=== PATIENT | female | born 1940 | race Caucasian/White ===

== ENCOUNTER → 2017-05-06 | Outpatient (CLI) | payer MEDICARE ==
[2017-05-06 08:49] LABS: ABSOLUTE BASOPHILS # (AUTO) 0.1 10^3/uL (0.0-0.2); ABSOLUTE EOSINOPHILS # (AUTO) 0.3 10^3/uL (0.0-0.6); ABSOLUTE LYMPHOCYTES (AUTO) 1.8 10^3/uL (0.5-4.7); ABSOLUTE MONOCYTES (AUTO) 0.5 10^3/uL (0.1-1.4); ABSOLUTE NEUT (AUTO) 4.7 10^3/uL (1.7-8.2); BASOPHILS % (AUTO) 0.9 % (0-2); HEMATOCRIT 39.3 % (36.0-47.0); HEMOGLOBIN 13.7 g/dL (12.0-15.5); HGB HCT DIFFERENCE 1.8; LYMPHOCYTES % (AUTO) 23.9 % (13-45); MEAN CORPUSCULAR HEMOGLOBIN 31.3 pg (27.0-33.4); MEAN CORPUSCULAR HGB CONC 34.7 g/dL (32.0-36.0); MEAN CORPUSCULAR VOLUME 90 fl (80-97); MONOCYTES % (AUTO) 7.1 % (3-13); RED BLOOD COUNT 4.37 10^6/uL (3.72-5.28); RED CELL DISTRIBUTION WIDTH 12.9 % (11.5-14.0); SEGMENTED NEUTROPHILS % (AUTO) 64.1 % (42-78); WHITE BLOOD COUNT 7.4 10^3/uL (4.0-10.5)
[2017-05-06 09:03] LABS: APPEARANCE,URINE CLEAR; BILIRUBIN,URINE NEGATIVE (NEGATIVE); GLUCOSE, URINE NEGATIVE (NEGATIVE); KETONES,URINE NEGATIVE (NEGATIVE); LEUKOCYTE ESTERASE,URINE TRACE (NEGATIVE); NITRITE,URINE NEGATIVE (NEGATIVE); PROTEIN,URINE NEGATIVE (NEGATIVE); URINE SPECIFIC GRAVITY 1.014; UROBILINOGEN,URINE NEGATIVE mg/dL (<2.0)
[2017-05-06 09:10] LABS: ALANINE AMINOTRANSFERASE 36 U/L (9-52); ALBUMIN 4.3 g/dL (3.5-5.0); ALKALINE PHOSPHATASE 90 U/L (38-126); ANION GAP 14 (5-19); ASPARTATE AMINO TRANSFERASE 27 U/L (14-36); BILIRUBIN,DIRECT 0.4 mg/dL (0.0-0.4); BILIRUBIN,TOTAL 0.4 mg/dL (0.2-1.3); BLOOD UREA NITROGEN 24 mg/dL (7-20); CALCIUM 9.8 mg/dL (8.4-10.2); CARBON DIOXIDE 24 mmol/L (22-30); CHLORIDE 102 mmol/L (98-107); CREATININE RESULT 1.33 mg/dL (0.52-1.25); GLUCOSE 100 mg/dL (75-110); PHOSPHORUS 3.7 mg/dL (2.5-4.5); SODIUM 140.3 mmol/L (137-145); TOTAL PROTEIN 7.2 g/dL (6.3-8.2)
[2017-05-06 09:15] LABS: ANION GAP 14 (5-19); BLOOD UREA NITROGEN 24 mg/dL (7-20); CALCIUM 9.8 mg/dL (8.4-10.2); CARBON DIOXIDE 24 mmol/L (22-30); CHLORIDE 102 mmol/L (98-107); CREATININE RESULT 1.33 mg/dL (0.52-1.25); GLUCOSE 100 mg/dL (75-110); SODIUM 140.3 mmol/L (137-145)
[2017-05-06 09:29] LABS: CHOLESTEROL 213.21 mg/dL (0-200); Direct HDL 59 mg/dL (>40); TRIGLYCERIDES 152 mg/dL (<150); VLDL CHOLESTEROL 30.4 mg/dL (10-31)
[2017-05-06 09:40] LABS: DIRECT LDL 110 mg/dL (<100)
[2017-05-09 11:40] LABS: CREATININE URINE 57.3 mg/dL (Not Estab.); MICROALBUMIN URINE 3.4 ug/mL (Not Estab.)
== END ==
LOC: OD 07:56
PROVIDERS: ATTEND Internal Medicine Nephrology
DX: E78.2 Mixed hyperlipidemia (principal); I10 Essential (primary) hypertension; E03.9 Hypothyroidism, unspecified; Z79.899 Other long term (current) drug therapy; N19 Unspecified kidney failure; R60.0 Localized edema; D64.9 Anemia, unspecified
CPT/HCPCS: 36415; 80048; 80053; 80061; 81001; 82043; 82306; 82570; 83036; 83970; 84100; 84443; 85025

== ENCOUNTER → 2017-08-07 | Outpatient (CLI) | payer MEDICARE ==
[2017-08-07 10:48] LABS: ANION GAP 13 (5-19); BLOOD UREA NITROGEN 56 mg/dL (7-20); CALCIUM 10.2 mg/dL (8.4-10.2); CARBON DIOXIDE 22 mmol/L (22-30); CHLORIDE 103 mmol/L (98-107); GLUCOSE 99 mg/dL (75-110); POTASSIUM 4.1 mmol/L (3.6-5.0); SODIUM 138.3 mmol/L (137-145)
== END ==
LOC: OD 08:59
PROVIDERS: ATTEND Internal Medicine Nephrology
DX: I12.9 Hypertensive chronic kidney disease with stage 1 through stage 4 chronic kidney disease, or unspecified chronic kidney disease (principal); N18.3 Chronic kidney disease, stage 3 (moderate); E55.9 Vitamin D deficiency, unspecified; E21.3 Hyperparathyroidism, unspecified
CPT/HCPCS: 36415; 80048; 82306; 83970

== ENCOUNTER 2018-01-14 12:05 | Day surgery (SDC) | payer MEDICARE ==
[2018-01-06 10:56] LABS: ABSOLUTE BASOPHILS # (AUTO) 0.1 10^3/uL (0.0-0.2); ABSOLUTE EOSINOPHILS # (AUTO) 0.2 10^3/uL (0.0-0.6); ABSOLUTE LYMPHOCYTES (AUTO) 2.1 10^3/uL (0.5-4.7); ABSOLUTE MONOCYTES (AUTO) 0.6 10^3/uL (0.1-1.4); ABSOLUTE NEUT (AUTO) 5.5 10^3/uL (1.7-8.2); BASOPHILS % (AUTO) 1.3 % (0-2); EOSINOPHILS % (AUTO) 2.8 % (0-6); HEMATOCRIT 40.2 % (36.0-47.0); HEMOGLOBIN 13.9 g/dL (12.0-15.5); LYMPHOCYTES % (AUTO) 24.3 % (13-45); MEAN CORPUSCULAR HEMOGLOBIN 31.7 pg (27.0-33.4); MEAN CORPUSCULAR HGB CONC 34.7 g/dL (32.0-36.0); MEAN CORPUSCULAR VOLUME 91 fl (80-97); PLATELET COUNT 230 10^3/uL (150-450); RED CELL DISTRIBUTION WIDTH 12.7 % (11.5-14.0); SEGMENTED NEUTROPHILS % (AUTO) 64.6 % (42-78); TOTAL CELLS COUNTED % (AUTO) 100 %; WHITE BLOOD COUNT 8.5 10^3/uL (4.0-10.5)
[2018-01-06 11:01] LABS: INTERNATIONAL RATION (INR) 0.88; PROTHROMBIN TIME 12.4 SEC (11.4-15.4)
[2018-01-06 11:02] LABS: PARTIAL THROMBOPLASTIN TIME 29.7 SEC (23.5-35.8)
[2018-01-06 11:05] LABS: APPEARANCE,URINE CLEAR; BILIRUBIN,URINE NEGATIVE (NEGATIVE); COLOR,URINE YELLOW; GLUCOSE, URINE NEGATIVE (NEGATIVE); KETONES,URINE NEGATIVE (NEGATIVE); LEUKOCYTE ESTERASE,URINE SMALL (NEGATIVE); NITRITE,URINE POSITIVE (NEGATIVE); PROTEIN,URINE NEGATIVE (NEGATIVE); URINE SPECIFIC GRAVITY 1.006; UROBILINOGEN,URINE NEGATIVE mg/dL (<2.0)
--- NOTE | 2018-01-06 12:41 | RADIOLOGY REPORT (SQ) ---
EXAM DESCRIPTION: CHEST PA/LATERAL COMPLETED DATE/TIME: 01/06/2018 11:26 am REASON FOR STUDY: PRE-OP COMPARISON: 03/08/2014. EXAM PARAMETERS: NUMBER OF VIEWS: two views TECHNIQUE: Digital Frontal and Lateral radiographic views of the chest acquired. RADIATION DOSE: NA LIMITATIONS: none FINDINGS: LUNGS AND PLEURA: No opacities, masses or pneumothorax. No pleural effusion. MEDIASTINUM AND HILAR STRUCTURES: No masses or contour abnormalities. HEART AND VASCULAR STRUCTURES: Heart normal size. No evidence for failure. BONES: No acute findings. HARDWARE: None in the chest. OTHER: No other significant finding. IMPRESSION: NO SIGNIFICANT RADIOGRAPHIC FINDING IN THE CHEST. TECHNICAL DOCUMENTATION: JOB ID: [id number] [employer]- All Rights Reserved Reading location - IP/workstation name: [email or web address]
--- NOTE | 2018-01-06 17:58 | EKG REPORT ---
SEVERITY:- BORDERLINE ECG - SINUS RHYTHM LOW VOLTAGE THROUGHOUT : Confirmed by: Litzy Salinas 06-Jan-2018 17:58:05
[~2018-01-14 12:05] MED LIST: CEFAZOLIN 1 GM/D5W RTU 1 GM/50 ML RTUPB IV PRN; CLINDAMYCIN 600 MG/D5W RTU 600 MG/50 ML RTUPB IV ONE; LIDOCAINE 0.5% INJ-PF (5 MG/ML) 50 ML SDV SUBCUT PRN; NORMAL SALINE 1000 ML (RENAL PATIENTS) IV PRN
[2018-01-14] MEDS ORDERED: ALBUTEROL SULFATE 0.083% NEB 2.5 MG/3 ML AMPUL NEB ONE (13:14)
--- NOTE | 2018-01-14 13:28 | RADIOLOGY REPORT (SQ) ---
EXAM DESCRIPTION: CHEST SINGLE VIEW COMPLETED DATE/TIME: 01/14/2018 12:59 pm REASON FOR STUDY: PREOP COMPARISON: 01/06/2018 EXAM PARAMETERS: NUMBER OF VIEWS: One view. TECHNIQUE: Single frontal radiographic view of the chest acquired. RADIATION DOSE: NA LIMITATIONS: None. FINDINGS: LUNGS AND PLEURA: No opacities, masses or pneumothorax. No pleural effusion. MEDIASTINUM AND HILAR STRUCTURES: No masses. Contour normal. HEART AND VASCULAR STRUCTURES: Heart normal in size. Normal vasculature. BONES: No acute findings. HARDWARE: None in the chest. OTHER: No other significant finding. IMPRESSION: NO ACUTE RADIOGRAPHIC FINDING IN THE CHEST. TECHNICAL DOCUMENTATION: JOB ID: [id number] [employer]- All Rights Reserved Reading location - IP/workstation name: [email or web address]
[2018-01-14] MEDS ORDERED: LIDOCAINE 1% INJ-PF (10 MG/ML) 30 ML SDV ONE (14:52)
[2018-01-14] MEDS ORDERED: TRIAMCINOLONE ACETONIDE INJ 40 MG/1 ML VIAL ONE ×2 (14:53)
[2018-01-14] MEDS ORDERED: BUPIVACAINE HCL 0.25% /EPINEPHRINE INJ/PF 30 ML SDV ONE (14:53)
[2018-01-14] MEDS ORDERED: FENTANYL CITRATE INJ/PF 100 MCG/2 ML AMPUL ONE (15:08)
[2018-01-14] MEDS ORDERED: PROPOFOL INJ 200 MG/20 ML VIAL IV ONE (15:09)
[2018-01-14] MEDS ORDERED: MIDAZOLAM 2 MG/2 ML INJ ONE ×2 (15:09)
[2018-01-14] MEDS ORDERED: MORPHINE SULFATE 10 MG/ML INJ IV PRN (15:48)
[2018-01-14] MEDS ORDERED: MEPERIDINE HCL/PF INJ 25 MG/1 ML DISP.SYRIN IV PRN (15:48)
[2018-01-14] MEDS ORDERED: PROMETHAZINE HCL INJ 25 MG/1 ML VIAL IV PRN ×2 (15:48)
[2018-01-14] MEDS ORDERED: OXYCODONE-ACETAMINOPHEN 5-325 MG TABLET PO PRN ×2 (15:48)
[2018-01-14] MEDS ORDERED: FENTANYL CITRATE INJ/PF 100 MCG/2 ML AMPUL IV PRN ×3 (15:48)
[2018-01-14] MEDS ORDERED: DIPHENHYDRAMINE HCL 50 MG/ML VIAL IV PRN (15:48)
[2018-01-14] MEDS ORDERED: CEFAZOLIN INJ 1 GM VIAL ONE (16:24)
[2018-01-14] MEDS ORDERED: OXYCODONE HCL IR 5 MG TABLET PO PRN (16:28)
[2018-01-14] MEDS ORDERED: CLINDAMYCIN PHOSPHATE INJ 300 MG/2 ML SDV ONE (16:32)
[2018-01-14] MEDS ORDERED: CLINDAMYCIN 300 MG/D5W RTU 300 MG/50 ML RTUPB IV ONE (17:00)
[2018-01-14 18:08] VITALS: BP 127/57
--- NOTE | 2018-01-14 20:15 | OPERATIVE REPORT E ---
Operative Report NAME: ELIER JOSE : 1940 AGE: 78Y DATE OF SURGERY: 01/14/2018 ROOM: PREOPERATIVE DIAGNOSIS: Lumbar spinal stenosis L4-5 with mild spondylolisthesis and neurogenic claudication. POSTOPERATIVE DIAGNOSIS: Lumbar spinal stenosis L4-5 with mild spondylolisthesis and neurogenic claudication. OPERATIVE PROCEDURE: Minimally invasive lumbar decompression L4-5 under fluoroscopic guidance using bilateral approach. SURGEON: JAUN CARDENAS M.D. ANESTHESIA: MAC. SURGICAL ASSISTANTS: MITZY BARROS M.D. INDICATIONS: Neurogenic claudication associated with spinal stenosis. BLOOD LOSS: 5 mL. COMPLICATIONS: None. SPECIMEN REMOVED: Lamina and ligamentum flavum at the L4-5 level bilaterally. PROCEDURE NOTE: After obtaining informed consent and advising the patient of the risks and benefits, including serious neurological bleeding, infection, paralysis, allergic reaction, failure to obtain pain relief and , she was taken to the operating room and placed comfortably in the prone position. MAC anesthesia was administered. She was prepped with appropriate drying time followed by draping. Using fluoroscopy, the lumbar spine was evaluated. Suitable entrance site for the L4-5 epidural needle placement was identified. This was anesthetized with 1% lidocaine with bicarb. The epidural needle was then inserted using a slight left paramedian technique entering near the midline location. Loss of resistance to saline was utilized. No heme or cerebrospinal fluid were noted. An epidurogram was performed demonstrating stenosis at the L4-5 level. Landmarks were further identified for placement of the MILD trocars using a bilateral approach with the entrance site above the right and left S1 pedicles. The skin above those regions was anesthetized with 1% lidocaine and a spinal needle was utilized to anesthetize the tissue tract to the L4-5 interspace bilaterally. Again, 1% lidocaine was utilized. Beginning on the left side, after a small incision was made in the skin, the MILD trocar was advanced along the anesthetized tract to the L4-5 interspace at the near left paramedian location. Views were taken in AP and oblique, demonstrating satisfactory location. The bone rongeur was then utilized followed by the tissue sculptor. Multiple passes were made and improvement in the *------* demonstrating resolution of the stenosis was noted. The procedure was then repeated on the right as described above. Again, improvement in contrast spread was noted demonstrating improvement in the stenosis. Upon completion of the case, an epidural steroid injection was performed at the same level using the existing needle. Total of 80 mg of triamcinolone were injected. All materials were removed. The region was cleansed. Sterile dressings were applied, and the patient was then taken to the PACU for further postoperative care and monitoring. DICTATING PHYSICIAN: JAUN CARDENAS M.D. [id number] PHY#: [id number] ID: [id number] JOB#: [id number] ACCT: [id number] cc:JAUN CARDENAS M.D. >
--- NOTE | 2018-01-14 20:43 | RADIOLOGY REPORT (SQ) ---
EXAM DESCRIPTION: NO CHG FLUORO; L SPINE 2 VIEWS COMPLETED DATE/TIME: 01/14/2018 8:11 pm REASON FOR STUDY: MILD; MINIMALLY INVASIVE LUMBAR DECOMPRESSION COMPARISON: None. FLUOROSCOPY TIME: 5.1 minutes 8 Images saved to PACS LIMITATIONS: None. PROCEDURE: Minimally invasive lumbar decompression FINDINGS: 8 images obtained with fluoro document the procedure. IMPRESSION: Minimally invasive lumbar decompression. Refer to operative note for further informatio n. COMMENT: PQRS 6045F: Fluoroscopy time of the procedure is documented in the report. TECHNICAL DOCUMENTATION: JOB ID: [id number] [employer]- All Rights Reserved Reading location - IP/workstation name: [email or web address]
--- NOTE | 2018-01-14 20:43 | RADIOLOGY REPORT (SQ) ---
EXAM DESCRIPTION: NO CHG FLUORO; L SPINE 2 VIEWS COMPLETED DATE/TIME: 01/14/2018 8:11 pm REASON FOR STUDY: MILD; MINIMALLY INVASIVE LUMBAR DECOMPRESSION COMPARISON: None. FLUOROSCOPY TIME: 5.1 minutes 8 Images saved to PACS LIMITATIONS: None. PROCEDURE: Minimally invasive lumbar decompression FINDINGS: 8 images obtained with fluoro document the procedure. IMPRESSION: Minimally invasive lumbar decompression. Refer to operative note for further informatio n. COMMENT: PQRS 6045F: Fluoroscopy time of the procedure is documented in the report. TECHNICAL DOCUMENTATION: JOB ID: [id number] [employer]- All Rights Reserved Reading location - IP/workstation name: [email or web address]
== END 2018-01-14 18:05 | disposition home or self-care (01) ==
LOC: OROUT 12:05
PROVIDERS: ATTEND Pain Medicine Interventional Pain Medicine
DX: M48.062 Spinal stenosis, lumbar region with neurogenic claudication (principal); Z00.6 Encounter for examination for normal comparison and control in clinical research program; M47.16 Other spondylosis with myelopathy, lumbar region; M47.897 Other spondylosis, lumbosacral region; M51.36 Other intervertebral disc degeneration, lumbar region; M54.17 Radiculopathy, lumbosacral region; M51.37 Other intervertebral disc degeneration, lumbosacral region; M54.5 Low back pain; M43.16 Spondylolisthesis, lumbar region; J44.9 Chronic obstructive pulmonary disease, unspecified; E03.9 Hypothyroidism, unspecified; I10 Essential (primary) hypertension; D64.9 Anemia, unspecified; M19.90 Unspecified osteoarthritis, unspecified site; G89.4 Chronic pain syndrome; Z79.01 Long term (current) use of anticoagulants; Z88.0 Allergy status to penicillin; Z88.5 Allergy status to narcotic agent; Z79.891 Long term (current) use of opiate analgesic; Z79.51 Long term (current) use of inhaled steroids
CPT/HCPCS: 93005; 36415 ×2; 84132; 85025; 85610; 85730; 81001; 71046; 71045; 72100; 93010; 0275T; Q9966; J2250; J3490 ×4; J2704; A9270; 630; J0690; J3010

== ENCOUNTER → 2018-02-07 | Outpatient (CLI) | payer MEDICARE ==
[2018-02-07 11:07] LABS: ANION GAP 14 (5-19); BLOOD UREA NITROGEN 41 mg/dL (7-20); CALCIUM 10.1 mg/dL (8.4-10.2); CARBON DIOXIDE 23 mmol/L (22-30); CHLORIDE 102 mmol/L (98-107); GLUCOSE 107 mg/dL (75-110); POTASSIUM 3.8 mmol/L (3.6-5.0); SODIUM 138.7 mmol/L (137-145)
[2018-02-07 11:09] LABS: APPEARANCE,URINE CLEAR; BILIRUBIN,URINE NEGATIVE (NEGATIVE); COLOR,URINE YELLOW; GLUCOSE, URINE NEGATIVE (NEGATIVE); KETONES,URINE NEGATIVE (NEGATIVE); LEUKOCYTE ESTERASE,URINE MODERATE (NEGATIVE); NITRITE,URINE NEGATIVE (NEGATIVE); PROTEIN,URINE NEGATIVE (NEGATIVE); UROBILINOGEN,URINE NEGATIVE mg/dL (<2.0)
[2018-02-08 11:38] LABS: CREATININE URINE 56.9 mg/dL (Not Estab.); MICROALBUMIN URINE 8.8 ug/mL (Not Estab.)
== END ==
LOC: OD 10:08
PROVIDERS: ATTEND Internal Medicine Nephrology
DX: N18.3 Chronic kidney disease, stage 3 (moderate) (principal); E55.9 Vitamin D deficiency, unspecified; N25.81 Secondary hyperparathyroidism of renal origin
CPT/HCPCS: 36415; 80048; 81001; 82043; 82306; 82570; 83970

== ENCOUNTER → 2018-03-28 | Outpatient (CLI) | payer MEDICARE ==
[2018-03-28 10:49] LABS: ANION GAP 14 (5-19); BLOOD UREA NITROGEN 45 mg/dL (7-20); CALCIUM 10.1 mg/dL (8.4-10.2); CARBON DIOXIDE 23 mmol/L (22-30); CHLORIDE 101 mmol/L (98-107); GLUCOSE 94 mg/dL (75-110); SODIUM 137.9 mmol/L (137-145)
== END ==
LOC: OD 09:56
PROVIDERS: ATTEND Internal Medicine Nephrology
DX: N18.3 Chronic kidney disease, stage 3 (moderate) (principal)
CPT/HCPCS: 36415; 80048

== ENCOUNTER → 2018-05-09 | Outpatient (CLI) | payer MEDICARE ==
[2018-05-09 10:49] LABS: ANION GAP 12 (5-19); BLOOD UREA NITROGEN 37 mg/dL (7-20); CALCIUM 9.7 mg/dL (8.4-10.2); CARBON DIOXIDE 24 mmol/L (22-30); CHLORIDE 105 mmol/L (98-107); CHOLESTEROL 227.45 mg/dL (0-200); GLUCOSE 90 mg/dL (75-110); POTASSIUM 3.9 mmol/L (3.6-5.0); SODIUM 140.9 mmol/L (137-145); TRIGLYCERIDES 118 mg/dL (<150)
[2018-05-09 11:00] LABS: DIRECT LDL 137 mg/dL (<100)
== END ==
LOC: OD 09:15
PROVIDERS: ATTEND Family Medicine
DX: E78.2 Mixed hyperlipidemia (principal); I10 Essential (primary) hypertension; E03.9 Hypothyroidism, unspecified; Z79.899 Other long term (current) drug therapy
CPT/HCPCS: 36415; 80048; 80061; 83036; 84443

== ENCOUNTER → 2018-06-26 | Outpatient (CLI) | payer MEDICARE ==
[2018-06-26 10:51] LABS: ANION GAP 10 (5-19); BLOOD UREA NITROGEN 42 mg/dL (7-20); CALCIUM 10.1 mg/dL (8.4-10.2); CARBON DIOXIDE 24 mmol/L (22-30); CHLORIDE 105 mmol/L (98-107); GLUCOSE 102 mg/dL (75-110); POTASSIUM 3.8 mmol/L (3.6-5.0); SODIUM 139.4 mmol/L (137-145)
== END ==
LOC: OD 09:27
PROVIDERS: ATTEND Internal Medicine Nephrology
DX: N18.3 Chronic kidney disease, stage 3 (moderate) (principal)
CPT/HCPCS: 36415; 80048

== ENCOUNTER → 2018-11-13 | Outpatient (CLI) | payer MEDICARE ==
[2018-11-13 09:49] LABS: ABSOLUTE BASOPHILS # (AUTO) 0.1 10^3/uL (0.0-0.2); ABSOLUTE EOSINOPHILS # (AUTO) 0.4 10^3/uL (0.0-0.6); ABSOLUTE LYMPHOCYTES (AUTO) 2.1 10^3/uL (0.5-4.7); ABSOLUTE MONOCYTES (AUTO) 0.5 10^3/uL (0.1-1.4); ABSOLUTE NEUT (AUTO) 6.1 10^3/uL (1.7-8.2); EOSINOPHILS % (AUTO) 3.9 % (0-6); HEMATOCRIT 37.8 % (36.0-47.0); HEMOGLOBIN 13.3 g/dL (12.0-15.5); LYMPHOCYTES % (AUTO) 23.4 % (13-45); MEAN CORPUSCULAR HEMOGLOBIN 31.6 pg (27.0-33.4); MEAN CORPUSCULAR HGB CONC 35.2 g/dL (32.0-36.0); MEAN CORPUSCULAR VOLUME 90 fl (80-97); MONOCYTES % (AUTO) 5.6 % (3-13); PLATELET COUNT 242 10^3/uL (150-450); RED BLOOD COUNT 4.21 10^6/uL (3.72-5.28); SEGMENTED NEUTROPHILS % (AUTO) 66.1 % (42-78); TOTAL CELLS COUNTED % (AUTO) 100 %; WHITE BLOOD COUNT 9.2 10^3/uL (4.0-10.5)
[2018-11-13 10:03] LABS: ALBUMIN 4.2 g/dL (3.5-5.0); ANION GAP 10 (5-19); BLOOD UREA NITROGEN 44 mg/dL (7-20); CALCIUM 10.3 mg/dL (8.4-10.2); CARBON DIOXIDE 27 mmol/L (22-30); CHLORIDE 102 mmol/L (98-107); GLUCOSE 102 mg/dL (75-110); PHOSPHORUS 3.7 mg/dL (2.5-4.5); POTASSIUM 3.8 mmol/L (3.6-5.0); SODIUM 139.4 mmol/L (137-145)
[2018-11-13 10:09] LABS: APPEARANCE,URINE SLIGHTLY-CLOUDY; BILIRUBIN,URINE NEGATIVE (NEGATIVE); COLOR,URINE YELLOW; GLUCOSE, URINE NEGATIVE (NEGATIVE); KETONES,URINE NEGATIVE (NEGATIVE); LEUKOCYTE ESTERASE,URINE LARGE (NEGATIVE); NITRITE,URINE POSITIVE (NEGATIVE); PROTEIN,URINE NEGATIVE (NEGATIVE); UROBILINOGEN,URINE NEGATIVE mg/dL (<2.0)
[2018-11-14 12:38] LABS: CREATININE URINE 44.8 mg/dL (Not Estab.); MICROALBUMIN URINE 15.2 ug/mL (Not Estab.)
== END ==
LOC: OD 09:07
PROVIDERS: ATTEND Internal Medicine Nephrology
DX: I12.9 Hypertensive chronic kidney disease with stage 1 through stage 4 chronic kidney disease, or unspecified chronic kidney disease (principal); N18.3 Chronic kidney disease, stage 3 (moderate); N39.0 Urinary tract infection, site not specified
CPT/HCPCS: 36415; 80069; 81001; 82043; 82306; 82570; 83970; 85025; 87086; 87088; 87186

== ENCOUNTER → 2019-03-19 | Outpatient (CLI) | payer MEDICARE ==
[2019-03-19 09:56] LABS: ANION GAP 11 (5-19); BLOOD UREA NITROGEN 35 mg/dL (7-20); CALCIUM 10.5 mg/dL (8.4-10.2); CARBON DIOXIDE 26 mmol/L (22-30); CHLORIDE 102 mmol/L (98-107); GLUCOSE 100 mg/dL (75-110); POTASSIUM 3.7 mmol/L (3.6-5.0)
[2019-03-20 10:36] LABS: MICROALBUMIN URINE 9.1 ug/mL (Not Estab.)
== END ==
LOC: OD 09:03
PROVIDERS: ATTEND Internal Medicine Nephrology
DX: I12.9 Hypertensive chronic kidney disease with stage 1 through stage 4 chronic kidney disease, or unspecified chronic kidney disease (principal); N18.3 Chronic kidney disease, stage 3 (moderate); N25.81 Secondary hyperparathyroidism of renal origin
CPT/HCPCS: 36415; 80048; 82043; 82570; 83970

== ENCOUNTER → 2019-05-06 | Outpatient (CLI) | payer MEDICARE ==
[2019-05-06 10:23] LABS: ANION GAP 12 (5-19); BLOOD UREA NITROGEN 27 mg/dL (7-20); CALCIUM 9.7 mg/dL (8.4-10.2); CARBON DIOXIDE 23 mmol/L (22-30); CHLORIDE 104 mmol/L (98-107); CHOLESTEROL 141.36 mg/dL (0-200); GLUCOSE 102 mg/dL (75-110); POTASSIUM 4.1 mmol/L (3.6-5.0); TRIGLYCERIDES 165 mg/dL (<150)
[2019-05-06 10:36] LABS: DIRECT LDL 56 mg/dL (<100)
== END ==
LOC: OD 08:43
PROVIDERS: ATTEND Family Medicine
DX: E78.2 Mixed hyperlipidemia (principal); I10 Essential (primary) hypertension; E03.9 Hypothyroidism, unspecified; Z79.899 Other long term (current) drug therapy
CPT/HCPCS: 36415; 80048; 80061; 83036; 84443

== ENCOUNTER → 2019-06-30 | Outpatient (CLI) | payer MEDICARE | LOC: OD 13:07 | PROVIDERS: ATTEND Family Medicine | DX: N30.20 Other chronic cystitis without hematuria (principal) | CPT/HCPCS: 87086; 87088; 87186 ==

== ENCOUNTER → 2019-07-22 | Outpatient (CLI) | payer MEDICARE ==
[2019-07-22 12:14] LABS: HEMATOCRIT 35.6 % (36.0-47.0); HEMOGLOBIN 12.2 g/dL (12.0-15.5); MEAN CORPUSCULAR HEMOGLOBIN 31.6 pg (27.0-33.4); MEAN CORPUSCULAR HGB CONC 34.4 g/dL (32.0-36.0); MEAN CORPUSCULAR VOLUME 92 fl (80-97); PLATELET COUNT 246 10^3/uL (150-450); RED BLOOD COUNT 3.87 10^6/uL (3.72-5.28); RED CELL DISTRIBUTION WIDTH 12.2 % (11.5-14.0); WHITE BLOOD COUNT 7.2 10^3/uL (4.0-10.5)
[2019-07-22 12:19] LABS: APPEARANCE,URINE CLEAR; BILIRUBIN,URINE NEGATIVE (NEGATIVE); COLOR,URINE STRAW; GLUCOSE, URINE NEGATIVE (NEGATIVE); KETONES,URINE NEGATIVE (NEGATIVE); LEUKOCYTE ESTERASE,URINE NEGATIVE (NEGATIVE); NITRITE,URINE NEGATIVE (NEGATIVE); PROTEIN,URINE NEGATIVE (NEGATIVE); URINE SPECIFIC GRAVITY 1.008; UROBILINOGEN,URINE NEGATIVE mg/dL (<2.0)
[2019-07-22 12:20] LABS: ALBUMIN 4.3 g/dL (3.5-5.0); ANION GAP 14 (5-19); BLOOD UREA NITROGEN 30 mg/dL (7-20); CALCIUM 9.9 mg/dL (8.4-10.2); CARBON DIOXIDE 22 mmol/L (22-30); CHLORIDE 104 mmol/L (98-107); GLUCOSE 92 mg/dL (75-110); PHOSPHORUS 4.2 mg/dL (2.5-4.5); POTASSIUM 4.3 mmol/L (3.6-5.0)
[2019-07-22 12:43] LABS: ABSOLUTE LYMPHOCYTES# (MANUAL) 2.2 10^3/uL (0.5-4.7); ABSOLUTE MONOCYTES # (MANUAL) 0.4 10^3/uL (0.1-1.4); BASOPHILS % (MANUAL) 0 % (0-2); EOSINOPHILS % (MANUAL) 6 % (0-6); LYMPHOCYTES % (MANUAL) 31 % (13-45); MONOCYTES % (MANUAL) 6 % (3-13); PLATELET COMMENT ADEQUATE; RBC MORPHOLOGY COMMENT NORMO-CYTIC/CHROMIC; SEGMENTED NEUTROPHILS % (MAN) 57 % (42-78); TOTAL CELLS COUNTED 100
[2019-07-23 12:37] LABS: CREATININE URINE 24.2 mg/dL (Not Estab.)
[2019-07-23 13:25] LABS: MICROALBUMIN URINE <3.0 ug/mL (Not Estab.)
== END ==
LOC: OD 11:29
PROVIDERS: ATTEND Internal Medicine Nephrology
DX: I12.9 Hypertensive chronic kidney disease with stage 1 through stage 4 chronic kidney disease, or unspecified chronic kidney disease (principal); N18.3 Chronic kidney disease, stage 3 (moderate); E87.5 Hyperkalemia; R80.9 Proteinuria, unspecified; N25.81 Secondary hyperparathyroidism of renal origin
CPT/HCPCS: 36415; 80069; 81001; 82043; 82306; 82570; 83970; 85025

== ENCOUNTER → 2019-11-05 | Outpatient (CLI) | payer MEDICARE ==
[2019-11-05 09:36] LABS: ANION GAP 9 (5-19); BLOOD UREA NITROGEN 35 mg/dL (7-20); CALCIUM 9.6 mg/dL (8.4-10.2); CARBON DIOXIDE 26 mmol/L (22-30); CHLORIDE 101 mmol/L (98-107); GLUCOSE 118 mg/dL (75-110); POTASSIUM 4.6 mmol/L (3.6-5.0)
== END ==
LOC: OD 08:38
PROVIDERS: ATTEND Internal Medicine Nephrology
DX: I12.9 Hypertensive chronic kidney disease with stage 1 through stage 4 chronic kidney disease, or unspecified chronic kidney disease (principal); N18.3 Chronic kidney disease, stage 3 (moderate); R60.9 Edema, unspecified; N25.81 Secondary hyperparathyroidism of renal origin
CPT/HCPCS: 36415; 80048; 83970

== ENCOUNTER → 2020-05-02 | Outpatient (CLI) | payer MEDICARE ==
[2020-05-02 11:03] LABS: ANION GAP 14 (5-19); BLOOD UREA NITROGEN 29 mg/dL (7-20); CALCIUM 9.8 mg/dL (8.4-10.2); CARBON DIOXIDE 23 mmol/L (22-30); CHLORIDE 103 mmol/L (98-107); CHOLESTEROL 172.94 mg/dL (0-200); GLUCOSE 109 mg/dL (75-110); TRIGLYCERIDES 141 mg/dL (<150)
[2020-05-02 11:14] LABS: DIRECT LDL 99 mg/dL (<100)
== END ==
LOC: OD 09:45
PROVIDERS: ATTEND Family Medicine
DX: E78.2 Mixed hyperlipidemia (principal); I10 Essential (primary) hypertension; E03.9 Hypothyroidism, unspecified; Z79.899 Other long term (current) drug therapy
CPT/HCPCS: 36415; 80048; 80061; 83036; 84443